=== PATIENT | female | born 1995 | race African-American/Black ===

== ENCOUNTER 2020-09-02 13:39 | Emergency (ER) | payer OTHER ==
[~2020-09-02] VITALS: Ht 167.6 cm; Wt 85.3 kg
[2020-09-02 13:39] VITALS: TEMP 98.8
[2020-09-02 15:36] VITALS: BP 118/69
== END 2020-09-02 15:36 | disposition home or self-care (01) ==
LOC: ED 13:53
DX: S20.211A Contusion of right front wall of thorax, initial encounter (principal); V49.40XA Driver injured in collision with unspecified motor vehicles in traffic accident, initial encounter; Y92.89 Other specified places as the place of occurrence of the external cause
CPT/HCPCS: 99282